=== PATIENT | female | born 1995 | race Caucasian/White ===

== ENCOUNTER 2016-12-11 20:17 | Emergency (ER) | payer BC ==
[2016-12-11 20:37] VITALS: BP 119/69
--- NOTE | 2016-12-11 21:21 | RAD ---
CLINICAL HISTORY: Bilateral flank pain radiating to pelvis COMPARISON: None TECHNIQUE: Multiple contiguous axial CT scans were obtained of the abdomen and pelvis, without intravenous contrast enhancement. Coronal and sagittal multiplanar reformations are submitted for review. Oral contrast was not administered. FINDINGS: The study is limited by the lack of intravenous contrast. This limits evaluation of the solid organs and vasculature. LUNG BASES: The lung bases are clear. LIVER: The liver is at the upper limits of normal size measuring 18 cm. The liver is otherwise normal in shape, contour, and attenuation. BILE DUCTS: There is no intrahepatic or extrahepatic biliary dilatation. GALLBLADDER: The gallbladder is incompletely distended but is grossly normal. PANCREAS: The pancreas is normal, without mass or ductal dilatation. SPLEEN: Normal in size and appearance. UPPER GI TRACT: Evaluation of the gastrointestinal tract is limited by incomplete gastric distention. The upper GI tract is unremarkable. SMALL BOWEL AND MESENTERY: There is mucosal thickening and inflammatory change of the bowel within the right lower quadrant. This is not well evaluated. There is small amount of free fluid within the pelvis. There is no appreciable loculated fluid collection, though evaluation is limited by lack of intravenous contrast. COLON: The colon is normal in contour, course, caliber. The appendix is not clearly identified on the current examination.. ADRENALS: Normal bilaterally. KIDNEYS: The kidneys are normal in shape, size, contour, and axis. There is no hydronephrosis or nephrolithiasis. BLADDER: The bladder is smooth in contour. PELVIC ORGANS: The uterus and adnexa are grossly normal for technique. AORTA: The aorta is normal. IVC: Unremarkable LYMPH NODES: There is no lymphadenopathy by size criteria. ABDOMINAL WALL: There is no evidence for abdominal wall hernia. BONES AND SOFT TISSUES: The bones and soft tissues are unremarkable. OTHER: As noted above, there is a small amount of free fluid within the pelvis. IMPRESSION: 1. EVALUATION IS LIMITED BY THE LACK OF ORAL AND INTRAVENOUS CONTRAST.. 2. NO APPRECIABLE HYDRONEPHROSIS OR NEPHROLITHIASIS. 3. THERE IS MUCOSAL THICKENING AND INFLAMMATORY CHANGE OF THE BOWEL WITHIN THE RIGHT LOWER QUADRANT WITHOUT OBVIOUS LIKELY THE FLUID COLLECTION. THE APPENDIX IS NOT CLEARLY IDENTIFIABLE. THERE IS A SMALL AMOUNT OF FREE FLUID WITHIN THE PELVIS.
[2016-12-11] MEDS ORDERED: HYDROcodone/ACETAMIN 5-325 MG* 1 TAB PO ONE (21:38)
--- NOTE | 2016-12-15 12:21 | UC ---
Back Pain HPI - HPI Summary HPI Summary: Patient arrives with CC of bilateral flank pain radiating to the groin since 4 days ago. Patient has a history of crohns disease and started the medication budesonide 4 days ago. Denies previous history of UTI, kidney stones or pyelonephritis. Denies other health history. States the pain is intermittent and not worse or better at specific times during the day. Denies urinary symptoms, MALONEY, fever or abdominal pain. - History of Current Complaint Chief Complaint: UCBackPain Stated Complaint: BACK AND SIDE PAIN Time Seen by Provider: 12/11/16 21:14 Hx Obtained From: Patient Hx Last Menstrual Period: Implanon ?: No Onset/Duration: Sudden Onset, Lasting Days Timing: Intermittent Severity Initially: Moderate Severity Currently: Severe Pain Intensity: 4 Pain Scale Used: 0-10 Numeric Back Pain: Is Discrete @ - bilateral flanks, Radiates To - bilateral groin and pelvis Character: Aching Aggravating: Movement Alleviating: Nothing Associated Signs And Symptoms: Positive: Negative - Risk Factors AAA Risk Factors: Negative TAD Risk Factors: Negative Cauda Equina Risk Factors: Negative - Allergies/Home Medications Allergies/Adverse Reactions: Allergies Allergy/AdvReac Type Severity Reaction Status Date / Time Amoxicillin [From Augmentin] Allergy Severe Hives Verified 12/11/16 20:37 Clavulanic Acid Allergy Severe Hives Verified 12/11/16 20:37 [From Augmentin] Adhesive Tape Allergy Intermediate red Verified 12/11/16 20:37 Home Medications: Home Medications Budesonide CAP(NF) 3 mg PO TID 12/11/16 [History Confirmed 12/11/16] PMH/Surg Hx/FS Hx/Imm Hx Previously Healthy: Yes - history of crohns disease Endocrine History Of: Reports: Diabetes - type 1 - Surgical History Surgical History: Yes Surgery Procedure, Year, and Place: wisdom teeth. GASTRO ENDOSCOPY 06/01/13. LAPROSCOPIC SX FOR RIGHT OVARIAN CYST--2014. Colonscopy 10/2016 - Family History Known Family History: Positive: None - Social History Occupation: Student Lives: With Family Alcohol Use: Weekly Substance Use Type: None Smoking Status (MU): Former Smoker Have You Smoked in the Last Year: No When Did the Patient Quit Smoking/Using Tobacco: 2013 - Immunization History Hx Tetanus, Diphtheria Vaccination: Yes Vaccination Up to Date: Yes Review of Systems Constitutional: Negative Skin: Negative ENT: Negative Respiratory: Negative Cardiovascular: Negative Gastrointestinal: Negative Genitourinary: Other - flank pain bilaterally Motor: Negative Neurological: Negative All Other Systems Reviewed And Are Negative: Yes Physical Exam Triage Information Reviewed: Yes Appearance: Well-Appearing, No Pain Distress Vital Signs: Initial Vital Signs Temp 98.9 F 12/11/16 20:33 Pulse 85 12/11/16 20:33 Resp 14 12/11/16 20:33 BP 119/69 12/11/16 20:33 Pulse Ox 99 12/11/16 20:33 Vital Signs Reviewed: Yes Eye Exam: Normal Eyes: Positive: Conjunctiva Clear ENT: Positive: Hearing grossly normal Neck exam: Normal Neck: Positive: Supple, Nontender Respiratory Exam: Normal Respiratory: Positive: Chest non-tender, Lungs clear Cardiovascular Exam: Normal Abdomen Description: Positive: CVA Tenderness (R), CVA Tenderness (L) Bowel Sounds: Positive: Present Musculoskeletal Exam: Normal Musculoskeletal: Positive: Strength Intact, ROM Intact Neurological Exam: Normal Neurological: Positive: Alert Psychological Exam: Normal Psychological: Positive: Normal Response To Family, Age Appropriate Behavior Skin Exam: Normal Back Pain Course/Dx - Course Course Of Treatment: CT abd/pelvis negative for stone or other kidney pathology. Bilateral flank pain likely from side effect of budesonide although this is an unlikely side effect and not found in literature. Patient educated regarding medication and to follow up with PCP about potential change. Provider encouraged to stop taking medication until follow up in 2 days. Patient agrees and to return if symptoms worsen, urinary symptoms develop or fever develops. - Differential Dx/Diagnosis Differential Diagnosis/HQI/PQRI: Renal Colic, Strain, Other - UTI, nephrolithiasis, medication side effect Provider Diagnoses: bilateral flank pain Discharge - Discharge Plan Condition: Stable Disposition: HOME Prescriptions: Hydrocodone-Acetaminophen [Hydrocodone/Acetaminophen 5-325 mg] 1 tab PO Q4H #15 tab MDD 6 Patient Education Materials: Budesonide (By mouth), Crohn Disease (ED) Referrals: No Primary Care Phys,NOPCP [Primary Care Provider] - Additional Instructions: Follow up with your PCP. If symptoms worsen or fail to improve, come back to UC or go to ED. If you develop fever, worsening symptoms or intractable pain, come back to UC.
== END 2016-12-11 22:07 | disposition home or self-care (01) ==
LOC: UCCORT 20:17
DX: M54.5 Low back pain (principal); R10.32 Left lower quadrant pain; R10.31 Right lower quadrant pain; K50.90 Crohn's disease, unspecified, without complications; Z88.0 Allergy status to penicillin; Z87.891 Personal history of nicotine dependence
CPT/HCPCS: 74176; 99212; G0463

== ENCOUNTER → 2017-01-02 17:16 | Emergency (ER) | payer SELFPAY ==
[~2017-01-02 17:16] MED LIST: PPD test dose* 5 TU/0.1 ML TEST (*USE PPD ORDER SET*) INTRADERM SCH; PPD test dose* 5 TU/0.1 ML TEST (*USE PPD ORDER SET*) ONE
== END | disposition home or self-care (01) ==
LOC: OHCORT 17:16
DX: Z11.1 Encounter for screening for respiratory tuberculosis (principal)

== ENCOUNTER 2020-12-08 16:31 | Inpatient (IN) ==
[2020-12-08] MEDS ORDERED: NS 0.9% 1000 ml BAG 1,000 ML IV ONE (17:20)
[2020-12-08 17:28] LABS: Hematocrit 16 % (35-47); Hemoglobin 5.5 g/dL (12.0-16.0); Mean Corpuscular HGB Conc 35 g/dL (31-36); Mean Corpuscular Hemoglobin 31 pg (27-31); Mean Corpuscular Volume 89 fL (80-97); Platelet Count 259 10^3/uL (150-450); Red Blood Count 1.77 10^6 /uL (3.70-4.87); Red Cell Distribution Width 13 % (10-15); White Blood Count 5.2 10^3/uL (3.5-10.8)
[2020-12-08 17:32] LABS: Albumin 3.5 g/dL (3.2-5.2); Anion Gap 11 mmol/L (2-11); CO2 Carbon Dioxide 21 mmol/L (22-32); Calcium 8.2 mg/dL (8.6-10.3); Chloride 106 mmol/L (101-111); Potassium 3.9 mmol/L (3.5-5.0); Sodium 138 mmol/L (135-145)
[2020-12-08 17:38] LABS: ALT 12 U/L (7-52); AST 16 U/L (13-39); Albumin/Globulin Ratio 2.2 (1-3); Alkaline Phosphatase 36 U/L (34-104); BUN/Creatinine Ratio 18.9 (8-20); Blood Urea Nitrogen 14 mg/dL (6-24); EGFR African American 113.9 (>60); EGFR Non-African American 94.1 (>60); Globulin 1.6 g/dL (2-4); Glucose 179 mg/dL (70-100); Total Protein 5.1 g/dL (6.4-8.9)
[2020-12-08 17:42] LABS: INR 1.29 (0.82-1.09)
[2020-12-08 18:24] LABS: Influenza A Molecular Negative (Negative); Influenza B Molecular Negative (Negative)
[2020-12-08 18:41] LABS: ABS Lymphocytes 0.5 10^3/ul (1.0-4.8); ABS Monocytes 0.4 10^3/ul (0-0.8); ABS Neutrophils 4.3 10^3/ul (1.5-7.7); Eosinophil % 0.1 %; Lymphocyte % 10.2 %
[2020-12-08] MEDS ORDERED: Iodixanol (CONTRAST) 320 MG/ML 100 ML SDV IV ONE (18:56)
[2020-12-08 19:50] LABS: Urine Appearance Cloudy; Urine Bilirubin Negative (Negative); Urine Blood 2+ (Negative); Urine Color Straw; Urine Glucose 1+(50 mg/dL) (Negative); Urine Ketones 1+ (Negative); Urine Nitrite Negative (Negative); Urine Protein Negative (Negative); Urine Specific Gravity 1.006 (1.010-1.030); Urine Urobilinogen Negative (Negative)
[2020-12-08 19:54] LABS: Urine Bacteria Absent (Absent); Urine Red Blood Cell Trace(0-2/hpf) (Absent); Urine Squamous Epithelial Cell Present (Absent); Urine White Blood Cell Trace(0-5/hpf) (Absent)
[2020-12-08 20:06] LABS: Activated Partial Thrombo Time 23.5 seconds (26.0-38.0)
[2020-12-08 20:15] LABS: LDH 90 U/L (140-271); Total Iron Binding Capacity 322 mcg/dL (250-450); Transferrin 230 mg/dL (203-362)
[2020-12-08 20:17] LABS: % Iron Saturation 6 % (15-55); Iron < 20 ug/dL (50-212); Unsaturated Iron Binding < 307 ug/dL
[2020-12-08 20:29] LABS: Ferritin 3.2 ng/mL (11-307)
[2020-12-08] MEDS: NS 0.9% 1000 ml BAG 1,000 ML IV SCH (23:06)
[2020-12-08 23:28] LABS: C Reactive Protein < 1.00 mg/L (<8.01)
[2020-12-08] MEDS ORDERED: Insulin GLARGINE 100 un/ml 10 ml VIAL SUBCUT ONE (23:29)
[2020-12-08] MEDS ORDERED: Prochlorperazine 5 mg/ml 2 ml VIAL (10 mg) IV PRN (23:30)
[2020-12-08] MEDS: Ondansetron 4 mg VIAL 2 MG/ML 2 ml VIAL IV PRN (23:42)
[2020-12-09] MEDS: NS 0.9% 1000 ml BAG 1,000 ML IV SCH ×2 (05:52→18:07)
[2020-12-09 06:06] LABS: ABS Lymphocytes 1.4 10^3/ul (1.0-4.8); ABS Monocytes 0.8 10^3/ul (0-0.8); ABS Neutrophils 5.3 10^3/ul (1.5-7.7); Eosinophil % 0.1 %; Hematocrit 30 % (35-47); Hemoglobin 9.7 g/dL (12.0-16.0); Lymphocyte % 18.3 %; Mean Corpuscular HGB Conc 33 g/dL (31-36); Mean Corpuscular Hemoglobin 29 pg (27-31); Mean Corpuscular Volume 90 fL (80-97); Mean Platelet Volume 8.2 fL (7.4-10.4); Platelet Count 241 10^3/uL (150-450); Red Blood Count 3.31 10^6 /uL (3.70-4.87); Red Cell Distribution Width 15 % (10-15); White Blood Count 7.4 10^3/uL (3.5-10.8)
[2020-12-09 06:26] LABS: Albumin 3.7 g/dL (3.2-5.2); Calcium 8.5 mg/dL (8.6-10.3); Magnesium 1.6 mg/dL (1.9-2.7); Potassium 3.6 mmol/L (3.5-5.0); Total Bilirubin 1.2 mg/dL (0.2-1.0)
[2020-12-09 06:32] LABS: Albumin/Globulin Ratio 2.1 (1-3); BUN/Creatinine Ratio 16.9 (8-20); EGFR African American 119.5 (>60); EGFR Non-African American 98.7 (>60); Globulin 1.8 g/dL (2-4); Total Protein 5.5 g/dL (6.4-8.9)
[2020-12-09] MEDS ORDERED: Magnesium Sulfate 2 gm BAG 2 GM/50 ML BAG IVPB ONE (08:09)
[2020-12-09] MEDS: Venlafaxine XR 75 mg PO SCH (08:24)
[2020-12-09] MEDS: Iron Sucrose 200 MG in NS 0.9% 100 ml BAG 100 ML IVPB SCH (09:25)
[2020-12-09] MEDS ORDERED: Pantoprazole VIAL 40 MG VIAL IV SCH (10:00)
[2020-12-09] MEDS ORDERED: Dextrose 50% Syringe 50 ml 25 GM/50 ML SYRINGE IV PUSH PRN (10:24)
[2020-12-09] MEDS ORDERED: fentaNYL 100 mcg/2 ml 50 MCG/ML VIAL ONE (12:01)
[2020-12-09] MEDS ORDERED: Midazolam 10 mg/10 ml VIAL 1 mg/ml 10 ml VIAL (10 mg) ONE (12:01)
[2020-12-09] MEDS ORDERED: PEG 3000 GI LAVAGE 1 GALLON PO ONE (16:18)
[2020-12-09] MEDS: Ondansetron 4 mg VIAL 2 MG/ML 2 ml VIAL IV PRN (23:01)
[2020-12-10 06:35] LABS: Hematocrit 25 % (35-47); Hemoglobin 8.5 g/dL (12.0-16.0); Mean Corpuscular HGB Conc 34 g/dL (31-36); Mean Corpuscular Hemoglobin 29 pg (27-31); Mean Corpuscular Volume 86 fL (80-97); Platelet Count 232 10^3/uL (150-450); Red Blood Count 2.89 10^6 /uL (3.70-4.87); Red Cell Distribution Width 15 % (10-15); White Blood Count 4.9 10^3/uL (3.5-10.8)
[2020-12-10] MEDS: Venlafaxine XR 75 mg PO SCH (08:03)
[2020-12-10] MEDS: Iron Sucrose 200 MG in NS 0.9% 100 ml BAG 100 ML IVPB SCH (08:54)
[2020-12-10] MEDS: NS 0.9% 1000 ml BAG 1,000 ML IV SCH ×2 (08:54→21:42)
[2020-12-10] MEDS ORDERED: Polyethylene Glycol 3350 17 GM PACKET PO ONE ×2 (11:00→14:00)
[2020-12-10] MEDS: Ondansetron 4 mg VIAL 2 MG/ML 2 ml VIAL IV PRN (11:32)
[2020-12-10] MEDS ORDERED: Midazolam 10 mg/10 ml VIAL 1 mg/ml 10 ml VIAL (10 mg) ONE (16:53)
[2020-12-10] MEDS ORDERED: fentaNYL 100 mcg/2 ml 50 MCG/ML VIAL ONE (16:53)
[2020-12-11] MEDS: NS 0.9% 1000 ml BAG 1,000 ML IV SCH (05:59)
[2020-12-11 08:45] LABS: Hematocrit 28 % (35-47); Hemoglobin 9.4 g/dL (12.0-16.0); Mean Corpuscular HGB Conc 34 g/dL (31-36); Mean Corpuscular Hemoglobin 29 pg (27-31); Mean Corpuscular Volume 88 fL (80-97); Mean Platelet Volume 7.8 fL (7.4-10.4); Platelet Count 282 10^3/uL (150-450); Red Blood Count 3.22 10^6 /uL (3.70-4.87); Red Cell Distribution Width 15 % (10-15); White Blood Count 5.3 10^3/uL (3.5-10.8)
[2020-12-11] MEDS: Venlafaxine XR 75 mg PO SCH (08:49)
[2020-12-11] MEDS: Iron Sucrose 200 MG in NS 0.9% 100 ml BAG 100 ML IVPB SCH (08:49)
[2020-12-11 13:34] VITALS: BP 129/88
== END 2020-12-11 16:25 | disposition home or self-care (01) | DRG 254 ==
LOC: ED 16:31 → MED 18:41
PROVIDERS: ADMIT Internal Medicine; ATTEND Internal Medicine

== ENCOUNTER 2023-03-18 10:40 | Observation (INO) ==
[2023-03-18 11:24] LABS: ABS Lymphocytes 1.6 10^3/uL (1.0-4.8); ABS Monocytes 0.4 10^3/uL (0.0-0.9); ABS Neutrophils 4.4 10^3/uL (1.5-7.6); Eosinophil % 0.5 %; Hematocrit 21.5 % (35-45); Hemoglobin 7.4 g/dL (11.5-14.3); Lymphocyte % 25.1 %; Mean Corpuscular Hemoglobin 31.1 pg (27-33); Mean Corpuscular Hgb Conc 34.4 g/dL (31-36); Mean Corpuscular Volume 90.5 fL (80-97); Mean Platelet Volume 7.9 fL (7.5-11.2); Platelet Count 288 10^3/uL (150-450); Red Blood Count 2.38 10^6/uL (3.63-4.92); Red Cell Distribution Width 12.5 % (12-17); White Blood Count 6.5 10^3/uL (3.8-11.8)
[2023-03-18] MEDS ORDERED: Lactated Ringers 1000 ml BAG 1,000 ML IV ONE (11:27)
[2023-03-18 11:33] LABS: Activated Partial Thrombo Time 25.4 seconds (26.0-38.0); INR 1.05 (0.88-1.18)
[2023-03-18 12:08] LABS: Albumin 3.9 g/dL (3.2-5.2); Albumin/Globulin Ratio 2.2 (1-3); Calcium 8.9 mg/dL (8.6-10.3); Creatinine, Serum 0.67 mg/dL (0.51-0.95); Globulin 1.8 g/dL (2-4); Potassium 3.8 mmol/L (3.5-5.0); Total Bilirubin 0.2 mg/dL (0.2-1.0); Total Protein 5.7 g/dL (6.4-8.9); eGFR CKD-EPI 121.3 (>60)
[2023-03-18 12:27] LABS: Ferritin 13.4 ng/mL (11-307)
[2023-03-18] MEDS ORDERED: Pantoprazole VIAL 40 MG VIAL IV ONE (12:52)
[2023-03-18] MEDS ORDERED: Dextrose 50% Syringe 50 ml 25 GM/50 ML SYRINGE IV PUSH PRN (15:35)
[2023-03-18] MEDS ORDERED: Venlafaxine 25 mg TAB (NF) ONE (18:28)
[2023-03-18] MEDS: Venlafaxine XR 75 mg PO SCH (19:30)
[2023-03-18] MEDS: Pantoprazole VIAL 40 MG VIAL IV SCH (19:31)
[2023-03-18 20:54] LABS: Hematocrit 21.8 % (35-45); Hemoglobin 7.6 g/dL (11.5-14.3)
[2023-03-18] MEDS ORDERED: Insulin GLARGINE 100 un/ml 10 ml VIAL SUBCUT SCH (21:00)
[2023-03-19 07:33] LABS: ABS Eosinophils 0.1 10^3/uL (0.0-0.5); ABS Lymphocytes 1.9 10^3/uL (1.0-4.8); ABS Monocytes 0.5 10^3/uL (0.0-0.9); ABS Neutrophils 2.5 10^3/uL (1.5-7.6); Eosinophil % 1.5 %; Hematocrit 21.8 % (35-45); Hemoglobin 7.6 g/dL (11.5-14.3); Lymphocyte % 38.1 %; Mean Corpuscular Hemoglobin 31.2 pg (27-33); Mean Corpuscular Hgb Conc 34.9 g/dL (31-36); Mean Corpuscular Volume 89.3 fL (80-97); Nucleated Red Blood Cells % 0.1 /100 WBC (0.0-0.4); Platelet Count 197 10^3/uL (150-450); Red Blood Count 2.44 10^6/uL (3.63-4.92); Red Cell Distribution Width 12.7 % (12-17); White Blood Count 4.9 10^3/uL (3.8-11.8)
[2023-03-19] MEDS: Pantoprazole VIAL 40 MG VIAL IV SCH (08:35)
[2023-03-19] MEDS: Venlafaxine XR 75 mg PO SCH (08:35)
[2023-03-19] MEDS ORDERED: Pantoprazole VIAL 40 MG VIAL IV SCH (09:00)
[2023-03-19] MEDS ORDERED: Ferric Gluconate IV 250 MG in NS 0.9% 250 ml 200 ML IVPB ONE (09:00)
[2023-03-19 10:24] VITALS: BP 119/74
[2023-03-19 12:16] LABS: Hematocrit 21.4 % (35-45); Hemoglobin 7.6 g/dL (11.5-14.3)
== END 2023-03-19 13:30 | disposition home or self-care (01) ==
LOC: ED 10:40 → EDHOLD 10:40 → MED 17:13
PROVIDERS: ADMIT Internal Medicine; ATTEND Internal Medicine